=== PATIENT | female | born 1945 | race Two or more races ===

== ENCOUNTER 2017-06-23 09:23 | Outpatient (CLI) | payer OTHER ==
[~2017-06-23 09:23] MED LIST: AMBIEN10 MG PO; AVAPRO150 MG; AVAPRO300 MG; PRILOSEC40 MG PO; PRINIVIL10 MG PO; SIMVASTATIN20 MG PO; SYNTHROID50 MCG PO; WARFARIN SODIUM5 MG PO; XARELTO20 MG
== END 2017-06-23 10:00 | disposition home or self-care (01) ==
LOC: NUCLEAR 09:23
DX: I27.21 Secondary pulmonary arterial hypertension (principal); I34.0 Nonrheumatic mitral (valve) insufficiency

== ENCOUNTER 2019-03-15 13:40 | Inpatient (IN) | payer OTHER ==
[~2019-03-15] VITALS: Ht 152.4 cm; Wt 85.7 kg
[2019-04-11] MEDS ORDERED: ZANTAC300 MG PO (11:18)
[2019-04-11] MEDS ORDERED: LIPITOR20 MG PO (11:19)
[2019-04-11] MEDS ORDERED: CARDIZEM120 MG PO (11:19)
[2019-04-11] MEDS ORDERED: XOPENEX0.63 MG/3 IH (11:20)
[2019-04-11] MEDS ORDERED: FLOVENT DISKUS50 MCG IH (11:20)
[2019-04-11] MEDS ORDERED: GRALISE600 MG PO (11:20)
[2019-04-18] MEDS ORDERED: HYZAAR 100-12.1 EACH PO (08:10)
[2019-04-18] MEDS ORDERED: ULTRAM50 MG PO (08:15)
== END 2019-04-20 18:05 | DRG 470 ==
LOC: O/R 04-18 05:20 → SURG 04-18 05:20
PROVIDERS: ADMIT Orthopaedic Surgery
PROC: 0SRC0J9 Replacement of Right Knee Joint with Synthetic Substitute, Cemented, Open Approach (ICD-10-PCS; principal; 2019-04-18 10:00)
DX: M17.11 Unilateral primary osteoarthritis, right knee (principal); D62 Acute posthemorrhagic anemia; I10 Essential (primary) hypertension; I70.0 Atherosclerosis of aorta; E03.8 Other specified hypothyroidism; I48.0 Paroxysmal atrial fibrillation; Z79.01 Long term (current) use of anticoagulants

== ENCOUNTER 2019-05-31 15:25 | Emergency (ER) | payer OTHER ==
[~2019-05-31] VITALS: Ht 152.4 cm; Wt 84.4 kg
[~2019-05-31 15:25] MED LIST changes: +CARDIZEM120 MG PO; +FLOVENT DISKUS50 MCG IH; +GRALISE600 MG PO; +HYZAAR 100-12.1 EACH PO; +LIPITOR20 MG PO; +ULTRAM50 MG PO; +XOPENEX0.63 MG/3 IH; +ZANTAC300 MG PO
[2019-05-31] MEDS ORDERED: PERCOCET 5-3251 EACH PO (15:56)
[2019-05-31] MEDS ORDERED: ATORVASTATIN CA20 MG PO (15:57)
[2019-05-31] MEDS ORDERED: DILTIAZEM 24HR120 MG PO (15:58)
[2019-05-31] MEDS ORDERED: AMBIEN10 MG PO (16:08)
== END 2019-05-31 20:15 | disposition home or self-care (01) ==
LOC: ER 15:25
DX: R53.1 Weakness (principal); R06.02 Shortness of breath; T50.995A Adverse effect of other drugs, medicaments and biological substances, initial encounter; Y92.89 Other specified places as the place of occurrence of the external cause

== ENCOUNTER 2019-12-05 13:01 | Emergency (ER) | payer OTHER ==
[~2019-12-05] VITALS: Ht 157.5 cm; Wt 79.8 kg
[~2019-12-05 13:01] MED LIST changes: +ATORVASTATIN CA20 MG PO; +DILTIAZEM 24HR120 MG PO; +PERCOCET 5-3251 EACH PO
[2019-12-05] MEDS ORDERED: HYDRODIURIL12.5 MG (13:37)
[2019-12-05] MEDS ORDERED: BUSPIRONE HCL 15 MG (13:38)
[2019-12-05] MEDS ORDERED: OXICODONE (13:39)
[2019-12-05] MEDS ORDERED: ULTRAM50 MG (13:39)
[2019-12-05] MEDS ORDERED: [UNRECOGNIZED DRUG - OTHER] (13:42)
[2019-12-05] MEDS ORDERED: DICYCLOMINE HCL 20 MG (13:44)
== END 2019-12-05 18:41 | disposition home or self-care (01) ==
LOC: ER 13:01
DX: J45.998 Other asthma (principal); B96.0 Mycoplasma pneumoniae [M. pneumoniae] as the cause of diseases classified elsewhere; Z03.818 Encounter for observation for suspected exposure to other biological agents ruled out; R07.89 Other chest pain

== ENCOUNTER 2021-10-21 08:09 | Outpatient (CLI) | payer OTHER ==
[~2021-10-21 08:09] MED LIST changes: +BUSPIRONE HCL 15 MG; +DICYCLOMINE HCL 20 MG; +HYDRODIURIL12.5 MG; +OXICODONE; +ULTRAM50 MG; +[UNRECOGNIZED DRUG - OTHER]
== END 2021-10-21 08:10 | disposition home or self-care (01) ==
LOC: NUCLEAR 08:09
PROVIDERS: ATTEND Internal Medicine Cardiovascular Disease
DX: R07.89 Other chest pain (principal)
CPT/HCPCS: 78452; 93017; A9500

== ENCOUNTER 2022-05-07 10:42 | Inpatient (IN) | payer OTHER ==
[~2022-05-07] VITALS: Ht 152.4 cm; Wt 83.9 kg
[2022-05-12] MEDS ORDERED: LOSARTAN POTASS25 MG PO (14:22)
[2022-05-12] MEDS ORDERED: LEVOTHYROXINE50 MCG PO (14:22)
[2022-05-12] MEDS ORDERED: LORATADINE10 MG PO (14:22)
[2022-05-12] MEDS ORDERED: XARELTO20 MG PO (14:22)
[2022-05-12] MEDS ORDERED: LIPITOR40 MG PO (14:22)
[2022-05-12] MEDS ORDERED: DILTIAZEM HCL120 MG PO (14:22)
[2022-05-12] MEDS ORDERED: ALPRAZOLAM1 MG PO (14:22)
== END 2022-05-12 22:06 | disposition home or self-care (01) | DRG 65 ==
LOC: ER 10:42 → MEDI 20:43
PROVIDERS: ADMIT Internal Medicine; ATTEND Internal Medicine
PROC: BW28ZZZ Computerized Tomography (CT Scan) of Head (ICD-10-PCS; principal; 2022-05-07)
PROC: B345ZZZ Ultrasonography of Bilateral Common Carotid Arteries (ICD-10-PCS; 2022-05-07)
PROC: BW38ZZZ Magnetic Resonance Imaging (MRI) of Head (ICD-10-PCS; 2022-05-08)
PROC: B24BZZZ Ultrasonography of Heart with Aorta (ICD-10-PCS; 2022-05-08)
PROC: 4A12X4Z Monitoring of Cardiac Electrical Activity, External Approach (ICD-10-PCS; 2022-05-08)
DX: I63.511 Cerebral infarction due to unspecified occlusion or stenosis of right middle cerebral artery (principal); I69.354 Hemiplegia and hemiparesis following cerebral infarction affecting left non-dominant side; I10 Essential (primary) hypertension; E78.5 Hyperlipidemia, unspecified; I48.91 Unspecified atrial fibrillation; E03.9 Hypothyroidism, unspecified; R13.19 Other dysphagia; Z20.822 Contact with and (suspected) exposure to COVID-19; I48.0 Paroxysmal atrial fibrillation
CPT/HCPCS: 70544